=== PATIENT | male | born 1945 | race Hispanic/Latino ===

== ENCOUNTER 2017-02-03 04:39 | Inpatient (IN) | payer MEDICARE ==
[~2017-02-03] VITALS: Ht 172.7 cm; Wt 95.4 kg
[~2017-02-03 04:39] MED LIST: CIPRO XR500 MG PO; CITRATE OF MEGNESIA PO; FLAGYL500 MG PO; GOLYTEL1; LASIX 20 MG TAB20 MG PO; LIPITOR20 MG PO; LISINOPRIL5 MG PO; LORTAB 5 PO; LORTAB5 PO; METO25TAB PO; MILK OF MAG30 ML/UDC PO; NO HOME MEDS; NO MEDICATIONS; PCE500 MG PO; PLAVIX75 MG PO; PRAVASTATIN10 MG PO; PRILOSEC40 MG PO; ROBITUSSIN COUGH/COL OR
[2017-02-03] MEDS ORDERED: ASPIRIN81 MG PO (05:04)
[2017-02-03 05:47] LABS: HEMATOCRIT 41.6 % (39.0-50.0); HEMOGLOBIN 14.4 g/dl (14.0-18.0); IMMATURE GRANULOCYTES 0.9 % (0.0-1.0); MEAN CELL VOLUME 93.5 fL CALC (80.0-100.0); MEAN CORPUSCULAR HGB 32.4 pG CALC (26.0-32.0); MEAN CORPUSCULAR HGB CONC 34.6 g/L CALC (32.0-36.0); NEUT# 2.58 thou/uL (1.82-7.42); RED BLOOD COUNT 4.45 mill/uL (4.70-6.10)
[2017-02-03 06:02] LABS: ALBUMIN 3.9 g/dL (3.2-5.0); ALKALINE PHOSPHATASE 88 u/l (38-126); ANION GAP 14 (6-22 (CALC)); BILIRUBIN, TOTAL 0.4 mg/dL (0.0-1.4); BUN 24 mg/dL (8-23); BUN/CREATININE RATIO 29 (12-20 (CALC)); CALCIUM 9.1 mg/dL (8.4-10.2); CARBON DIOXIDE 24 mmol/l (22-30); CHLORIDE 107 mmol/l (95-108); CREATININE 0.8 mg/dL (0.7-1.3); GFR > 60 ML/MIN (>=60 (CALC)); GFR FOR AFR.AMER. > 60 ML/MIN (>=60 (CALC)); GLUCOSE 133 mg/dL (82-115); POTASSIUM 3.7 mmol/l (3.5-5.1); SGOT/AST 22 u/l (19-48); SGPT/ALT 28 u/l (11-66); SODIUM 141 mmol/l (137-146); TOTAL PROTEIN 7.2 g/dL (6.3-8.2)
[2017-02-03 06:14] LABS: MYOGLOBIN 37 ng/mL (0 - 121)
[2017-02-03 08:29] VITALS: BP 161/76
[2017-02-03 12:20] VITALS: BP 157/82
[2017-02-03 13:00] VITALS: BP 157/82
== END 2017-02-03 13:30 | disposition short-term general hospital (02) | DRG 282 ==
LOC: ED 04:39 → ED-I 05:30 → ED 05:30 → ED-I 06:50 → ED 07:07 → MS2 07:08
PROVIDERS: Emergency Medicine; ADMIT Internal Medicine; ATTEND Internal Medicine
DX: I21.4 Non-ST elevation (NSTEMI) myocardial infarction (principal); I10 Essential (primary) hypertension; I25.10 Atherosclerotic heart disease of native coronary artery without angina pectoris; Z95.5 Presence of coronary angioplasty implant and graft; Z85.038 Personal history of other malignant neoplasm of large intestine; Z79.82 Long term (current) use of aspirin; Z87.891 Personal history of nicotine dependence
CPT/HCPCS: J1650

== ENCOUNTER 2017-09-22 19:16 | Emergency (ER) | payer MEDICARE ==
[~2017-09-22] VITALS: Ht 172.7 cm; Wt 98.2 kg
[~2017-09-22 19:16] MED LIST changes: +ASPIRIN81 MG PO
[2017-09-22 20:40] LABS: HEMOGLOBIN 16.6 g/dl (14.0-18.0); IMMATURE GRANULOCYTES 0.4 % (0.0-1.0); MEAN CELL VOLUME 97.8 fL CALC (80.0-100.0); MEAN CORPUSCULAR HGB 33.8 pG CALC (26.0-32.0); MEAN CORPUSCULAR HGB CONC 34.6 g/L CALC (32.0-36.0); NEUT# 3.72 thou/uL (1.82-7.42); RED BLOOD COUNT 4.91 mill/uL (4.70-6.10); RED CELL DISTRI WIDTH 13.9 % (11.5-15.5)
[2017-09-22 20:42] LABS: URINE BILIRUBIN - DIPSTICK NEGATIVE (NEGATIVE); URINE BLOOD DIPSTICK NEGATIVE (NEGATIVE); URINE CLARITY CLEAR; URINE COLOR YELLOW; URINE GLUCOSE - DIPSTICK NEGATIVE (NEGATIVE); URINE KETONE NEGATIVE (NEGATIVE); URINE LEUK ESTERASE NEGATIVE (NEGATIVE); URINE NITRITE - DIPSTICK NEGATIVE (Negative); URINE PROTEIN - DIPSTICK NEGATIVE (NEG-TRACE); URINE SPECIFIC GRAVITY >=1.030; URINE UROBILINOGEN - DIPSTICK 0.2 E.U./dL (0.2)
[2017-09-22 20:49] LABS: ALBUMIN 4.4 g/dL (3.2-5.0); ALKALINE PHOSPHATASE 60 u/l (38-126); ANION GAP 17 (6-22 (CALC)); BILIRUBIN, TOTAL 0.7 mg/dL (0.0-1.4); BUN 15 mg/dL (8-23); BUN/CREATININE RATIO 17 (12-20 (CALC)); CALCIUM 9.7 mg/dL (8.4-10.2); CARBON DIOXIDE 20 mmol/l (22-30); CHLORIDE 110 mmol/l (95-108); CREATININE 0.9 mg/dL (0.7-1.3); GFR > 60 ML/MIN (>=60 (CALC)); GFR FOR AFR.AMER. > 60 ML/MIN (>=60 (CALC)); GLUCOSE 88 mg/dL (82-115); POTASSIUM 4.5 mmol/l (3.5-5.1); SGOT/AST 25 u/l (19-48); SGPT/ALT 31 u/l (11-66); SODIUM 143 mmol/l (137-146); TOTAL PROTEIN 7.2 g/dL (6.3-8.2)
[2017-09-22 21:01] LABS: MYOGLOBIN 44 ng/mL (0 - 121)
[2017-09-22] MEDS ORDERED: AUGMENTIN875TAB PO (23:10)
[2017-09-22] MEDS ORDERED: ANTIVERT PO (23:10)
[2017-09-22 23:20] VITALS: BP 141/73
== END 2017-09-22 23:20 | disposition home or self-care (01) ==
LOC: ED 19:16
PROVIDERS: Emergency Medicine
DX: R42 Dizziness and giddiness (principal); R10.9 Unspecified abdominal pain; R11.0 Nausea; I71.4 Abdominal aortic aneurysm, without rupture; H66.93 Otitis media, unspecified, bilateral; E78.5 Hyperlipidemia, unspecified; I25.10 Atherosclerotic heart disease of native coronary artery without angina pectoris; Z85.038 Personal history of other malignant neoplasm of large intestine; Z95.820 Peripheral vascular angioplasty status with implants and grafts
CPT/HCPCS: S0164

== ENCOUNTER 2018-05-22 15:53 | Emergency (ER) | payer MEDICARE ==
[~2018-05-22] VITALS: Ht 172.7 cm; Wt 100.0 kg
[~2018-05-22 15:53] MED LIST changes: +ANTIVERT PO; +AUGMENTIN875TAB PO
[2018-05-22] MEDS ORDERED: LEVAQUIN750 M1 PO (16:09)
[2018-05-22] MEDS ORDERED: FLOXIN OTIC0.3 % AD (16:09)
[2018-05-22 16:12] VITALS: BP 155/89
== END 2018-05-22 16:17 | disposition home or self-care (01) ==
LOC: ED 15:53
DX: H60.91 Unspecified otitis externa, right ear (principal)

== ENCOUNTER 2019-04-04 21:45 | Emergency (ER) | payer MEDICARE ==
[~2019-04-04] VITALS: Ht 172.7 cm; Wt 100.0 kg
[~2019-04-04 21:45] MED LIST changes: +FLOXIN OTIC0.3 % AD; +LEVAQUIN750 M1 PO
[2019-04-04 22:28] LABS: HEMATOCRIT 45.8 % (39.0-50.0); HEMOGLOBIN 15.3 g/dl (14.0-18.0); IMMATURE GRANULOCYTES 0.6 % (0.0-5.0); MEAN CELL VOLUME 96.2 fL CALC (80.0-100.0); MEAN CORPUSCULAR HGB 32.1 pG CALC (26.0-32.0); MEAN CORPUSCULAR HGB CONC 33.4 g/L CALC (32.0-36.0); NEUT# 3.71 thou/uL (1.82-7.42); RED BLOOD COUNT 4.76 mill/uL (4.70-6.10); RED CELL DISTRI WIDTH 14.1 % (11.5-15.5)
[2019-04-04 22:46] LABS: ALBUMIN 4.2 g/dL (3.2-5.0); ALKALINE PHOSPHATASE 60 u/l (38-126); ANION GAP 15 (6-22 (CALC)); BUN 19 mg/dL (8-23); BUN/CREATININE RATIO 19 (12-20 (CALC)); CARBON DIOXIDE 20 mmol/l (22-30); CHLORIDE 109 mmol/l (95-108); GFR > 60 ML/MIN (>=60 (CALC)); GFR FOR AFR.AMER. > 60 ML/MIN (>=60 (CALC)); SGOT/AST 16 u/l (19-48); SODIUM 140 mmol/l (137-146); TOTAL PROTEIN 6.8 g/dL (6.3-8.2)
[2019-04-04 22:48] LABS: BILIRUBIN, TOTAL 0.4 mg/dL (0.0-1.4); PROTHROMBIN TIME 10.5 SECONDS (9.0-12.5)
[2019-04-05] MEDS ORDERED: LEVAQUIN750 MG PO (03:42)
[2019-04-05 04:10] VITALS: BP 139/79
== END 2019-04-05 04:10 | disposition home or self-care (01) ==
LOC: ED 21:45
PROVIDERS: Emergency Medicine
DX: R22.31 Localized swelling, mass and lump, right upper limb (principal); M79.601 Pain in right arm; R91.8 Other nonspecific abnormal finding of lung field
CPT/HCPCS: Q9967

== ENCOUNTER 2019-08-27 20:58 | Emergency (ER) | payer MEDICARE ==
[~2019-08-27] VITALS: Ht 172.7 cm; Wt 100.0 kg
[~2019-08-27 20:58] MED LIST changes: +LEVAQUIN750 MG PO
[2019-08-27 22:15] LABS: HEMATOCRIT 45.2 % (39.0-50.0); HEMOGLOBIN 15.2 g/dl (14.0-18.0); IMMATURE GRANULOCYTES 0.7 % (0.0-5.0); MEAN CELL VOLUME 96.2 fL CALC (80.0-100.0); MEAN CORPUSCULAR HGB 32.3 pG CALC (26.0-32.0); MEAN CORPUSCULAR HGB CONC 33.6 g/L CALC (32.0-36.0); NEUT# 4.2 thou/uL (1.82-7.42); RED BLOOD COUNT 4.7 mill/uL (4.70-6.10); RED CELL DISTRI WIDTH 13.5 % (11.5-15.5)
[2019-08-27 22:28] LABS: ALBUMIN 4.5 g/dL (3.2-5.0); ALKALINE PHOSPHATASE 73 u/l (38-126); ANION GAP 13 (6-22 (CALC)); BILIRUBIN, TOTAL 0.3 mg/dL (0.0-1.4); BUN 22 mg/dL (8-23); BUN/CREATININE RATIO 19 (12-20 (CALC)); CHLORIDE 105 mmol/l (95-108); CREATININE 1.1 mg/dL (0.7-1.3); GFR > 60 ML/MIN (>=60 (CALC)); GFR FOR AFR.AMER. > 60 ML/MIN (>=60 (CALC)); POTASSIUM 4.3 mmol/l (3.5-5.1); SGOT/AST 24 u/l (19-48); SODIUM 140 mmol/l (137-146); TOTAL PROTEIN 7.7 g/dL (6.3-8.2)
[2019-08-27 22:31] LABS: PROTHROMBIN TIME 10.2 SECONDS (9.0-12.5)
[2019-08-27 22:33] LABS: CARBON DIOXIDE 26 mmol/l (22-30)
[2019-08-27 22:36] LABS: MYOGLOBIN 44 ng/mL (0 - 121)
[2019-08-27 23:13] LABS: URINE BILIRUBIN - DIPSTICK NEGATIVE (NEGATIVE); URINE BLOOD DIPSTICK NEGATIVE (NEGATIVE); URINE COLOR YELLOW; URINE GLUCOSE - DIPSTICK NEGATIVE (NEGATIVE); URINE KETONE NEGATIVE (NEGATIVE); URINE LEUK ESTERASE NEGATIVE (NEGATIVE); URINE NITRITE - DIPSTICK NEGATIVE (Negative); URINE PROTEIN - DIPSTICK NEGATIVE (NEG-TRACE); URINE UROBILINOGEN - DIPSTICK 0.2 E.U./dL (0.2)
[2019-08-28] MEDS ORDERED: ROBITUSSIN AC10 ML PO (00:05)
[2019-08-28] MEDS ORDERED: ZPAK PO (00:05)
[2019-08-28 00:30] VITALS: BP 141/72
== END 2019-08-28 00:27 | disposition home or self-care (01) ==
LOC: ED 20:58
PROVIDERS: Emergency Medicine
DX: R04.2 Hemoptysis (principal); J06.9 Acute upper respiratory infection, unspecified; Z87.891 Personal history of nicotine dependence
CPT/HCPCS: Q9967

== ENCOUNTER 2021-08-12 07:27 | Emergency (ER) | payer MEDICARE ==
[~2021-08-12] VITALS: Ht 172.7 cm; Wt 100.0 kg
[~2021-08-12 07:27] MED LIST changes: +ROBITUSSIN AC10 ML PO; +ZPAK PO
[2021-08-12 08:05] LABS: HEMATOCRIT 44.5 % (39.0-50.0); HEMOGLOBIN 15.1 g/dl (14.0-18.0); IMMATURE GRANULOCYTES 0.5 % (0.0-5.0); MEAN CELL VOLUME 97.8 fL CALC (80.0-100.0); MEAN CORPUSCULAR HGB 33.2 pG CALC (26.0-32.0); MEAN CORPUSCULAR HGB CONC 33.9 g/dL CAL (32.0-36.0); NEUT# 3.07 thou/uL (1.82-7.42); RED BLOOD COUNT 4.55 mill/uL (4.70-6.10); RED CELL DISTRI WIDTH 12.4 % (11.5-15.5)
[2021-08-12 08:21] LABS: ALKALINE PHOSPHATASE 73 u/l (38-126); ANION GAP 10 (6-22 (CALC)); BUN 25 mg/dL (8-23); BUN/CREATININE RATIO 25 (12-20 (CALC)); CARBON DIOXIDE 24 mmol/l (22-30); CHLORIDE 108 mmol/l (95-108); GFR > 60 ML/MIN (>=60 (CALC)); GFR FOR AFR.AMER. > 60 ML/MIN (>=60 (CALC)); SGOT/AST 21 u/l (19-48); SODIUM 138 mmol/l (137-146); TOTAL PROTEIN 7.1 g/dL (6.3-8.2)
[2021-08-12 08:30] LABS: BILIRUBIN, TOTAL 0.5 mg/dL (0.0-1.4)
[2021-08-12] MEDS ORDERED: MECLIZINE25 MG PO (10:02)
[2021-08-12 10:33] VITALS: BP 143/75
== END 2021-08-12 10:55 | disposition home or self-care (01) ==
LOC: ED 07:27
PROVIDERS: Family Medicine
DX: R42 Dizziness and giddiness (principal); I10 Essential (primary) hypertension; Z85.038 Personal history of other malignant neoplasm of large intestine
CPT/HCPCS: Q9967

== ENCOUNTER 2022-04-14 15:41 | Emergency (ER) | payer OTHER, MEDICARE ==
[2022-04-14] VITALS (8 sets, daily range): BP systolic 120–142; BP diastolic 66–76
[~2022-04-14] VITALS: Ht 172.7 cm; Wt 97.0 kg
[~2022-04-14 15:41] MED LIST changes: +MECLIZINE25 MG PO
[2022-04-14 16:15] LABS: HEMATOCRIT 43.7 % (39.0-50.0); HEMOGLOBIN 14.7 g/dl (14.0-18.0); IMMATURE GRANULOCYTES 0.3 % (0.0-5.0); MEAN CELL VOLUME 97.3 fL CALC (80.0-100.0); MEAN CORPUSCULAR HGB 32.7 pG CALC (26.0-32.0); MEAN CORPUSCULAR HGB CONC 33.6 g/dL CAL (32.0-36.0); NEUT# 5.3 thou/uL (1.82-7.42); RED BLOOD COUNT 4.49 mill/uL (4.70-6.10); RED CELL DISTRI WIDTH 11.9 % (11.5-15.5)
[2022-04-14 16:39] LABS: ALKALINE PHOSPHATASE 57 u/l (38-126); ANION GAP 13 (6-22 (CALC)); BILIRUBIN, TOTAL 0.5 mg/dL (0.0-1.4); BUN 17 mg/dL (8-23); BUN/CREATININE RATIO 19 (12-20 (CALC)); CARBON DIOXIDE 22 mmol/l (22-30); CHLORIDE 111 mmol/l (95-108); CREATININE 0.9 mg/dL (0.7-1.3); GFR > 60 ML/MIN (>=60 (CALC)); GFR FOR AFR.AMER. > 60 ML/MIN (>=60 (CALC)); LIPASE 275 u/l (23-300); SGOT/AST 19 u/l (19-48); SODIUM 142 mmol/l (137-146); TOTAL PROTEIN 7.2 g/dL (6.3-8.2)
== END 2022-04-14 17:50 | disposition home or self-care (01) | DRG 313 ==
LOC: ED 15:41
PROVIDERS: Family Medicine
DX: R07.89 Other chest pain (principal); M54.2 Cervicalgia; V49.40XA Driver injured in collision with unspecified motor vehicles in traffic accident, initial encounter; Z85.038 Personal history of other malignant neoplasm of large intestine
CPT/HCPCS: Q9967

== ENCOUNTER 2023-01-09 14:20 | Inpatient (IN) | payer MEDICARE ==
[~2023-01-09] VITALS: Ht 172.7 cm; Wt 98.8 kg
[2023-01-09] VITALS (14 sets, daily range): BP systolic 120–155; BP diastolic 64–85
--- NOTE | 2023-01-09 16:17 | NUR ---
PT AMBULATED BACK TO RM 13 FOR EVALUATION, AT BEDSIDE, HOOKED UP TO VITALS MONITOR.
[2023-01-09 17:20] LABS: BASO% 0.3 % (0-3); EOS% 0.7 % (0-8); HEMATOCRIT 44.9 % (39.0-50.0); HEMOGLOBIN 14.8 g/dl (14.0-18.0); IMMATURE GRANULOCYTES 0.3 % (0.0-5.0); MONO% 7.6 % (2-13); NEUT# 6.42 thou/uL (1.82-7.42); NEUT% 73.1 % (42-76); RED BLOOD COUNT 4.63 mill/uL (4.70-6.10); RED CELL DISTRI WIDTH 13.4 % (11.5-15.5)
--- NOTE | 2023-01-09 17:21 | NUR ---
Reassessment of patient completed. No distress noted.
[2023-01-09 17:34] LABS: ALBUMIN 4.4 g/dL (3.2-5.0); ALKALINE PHOSPHATASE 65 u/l (38-126); ANION GAP 13 (6-22 (CALC)); BUN 16 mg/dL (8-23); BUN/CREATININE RATIO 17 (12-20 (CALC)); CARBON DIOXIDE 23 mmol/l (22-30); CHLORIDE 106 mmol/l (95-108); CREATININE 0.9 mg/dL (0.7-1.3); GFR FOR AFR.AMER. > 60 ML/MIN (>=60 (CALC)); GFR OTHER RACES > 60 ML/MIN (>=60 (CALC)); POTASSIUM 3.7 mmol/l (3.5-5.1); SGOT/AST 27 u/l (19-48); SODIUM 138 mmol/l (137-146); TOTAL PROTEIN 7.9 g/dL (6.3-8.2)
--- NOTE | 2023-01-09 20:13 | NUR ---
PT IN ROOM RESTING. PT ASKED FOR A URINAL AND IT WAS PROVIDED. NAD
[2023-01-09 20:28] LABS: ACT PARTIAL THROMBO TIME 27.8 SECONDS (20.0-32.5); INTERNATIONAL NORMALIZED RATIO 1.1 RATIO (0.7-1.3); PROTHROMBIN TIME 10.9 SECONDS (9.0-12.5)
--- NOTE | 2023-01-09 21:22 | NUR ---
PT IN ROOM, ASKED WHEN WILL HE GO UP TO A ROOM. AZITHROMYCIN STARTED. NAD, VSS
--- NOTE | 2023-01-09 22:15 | NUR ---
Reassessment of patient completed. No distress noted.
--- NOTE | 2023-01-09 23:34 | NUR ---
REPORT CALLED IN TO RAFAEL ARANGO. ON MED SURG. PT GOING TO ROOM 262
--- NOTE | 2023-01-09 23:45 | NUR ---
PT ARRIVED TO [facility] @[id number] VIA WHEELCHAIR, ACCOMPANIED BY KARY. RECEIVED REPORT FROM ER NURSE. PT ORIENBTED TO ROOM AND USE OF CALL LIGHT. VS AND ASSESS,MENT COMPLETED. PT A&O X3. SOB ON EXERTION. O2 @ 2L VIA NASAL CANNULA IN PLACE. IV SITE HEALTHY AND PATENT. ACTIVE BOWEL SOUNDS X4 QUADRANTS. SKIN IS INTACT. SAFETY PRECAUTIONS IN PLACE WITH CALL LIGHT IN REACH.
[2023-01-10 03:46] VITALS: BP 124/62
--- NOTE | 2023-01-10 03:48 | NUR ---
PT RESTING ON BED WITH EYES CLOSED. NO DISTRESS OR PAIN NOTED. VS COMPLETED. NO VOICED NEEDS AT THIS TIME. SAFETY PRECAUTIONS IN PLACE WITH CALL LIGHT IN REACH.
[2023-01-10 04:41] LABS: BASO% 0.4 % (0-3); HEMATOCRIT 40.3 % (39.0-50.0); HEMOGLOBIN 13.3 g/dl (14.0-18.0); IMMATURE GRANULOCYTES 0.7 % (0.0-5.0); LYMPH% 24.6 % (15-41); MEAN CELL VOLUME 96.2 fL CALC (80.0-100.0); MEAN CORPUSCULAR HGB 31.7 pG CALC (26.0-32.0); MONO% 10.1 % (2-13); NEUT# 5.07 thou/uL (1.82-7.42); NEUT% 63.2 % (42-76); RED BLOOD COUNT 4.19 mill/uL (4.70-6.10); RED CELL DISTRI WIDTH 13.2 % (11.5-15.5)
[2023-01-10 04:55] LABS: ALBUMIN 3.9 g/dL (3.2-5.0); ALKALINE PHOSPHATASE 63 u/l (38-126); ANION GAP 11 (6-22 (CALC)); BUN 14 mg/dL (8-23); BUN/CREATININE RATIO 16 (12-20 (CALC)); CARBON DIOXIDE 26 mmol/l (22-30); CHLORIDE 105 mmol/l (95-108); CREATININE 0.9 mg/dL (0.7-1.3); GFR FOR AFR.AMER. > 60 ML/MIN (>=60 (CALC)); GFR OTHER RACES > 60 ML/MIN (>=60 (CALC)); POTASSIUM 3.5 mmol/l (3.5-5.1); SGOT/AST 31 u/l (19-48); SODIUM 138 mmol/l (137-146); TOTAL PROTEIN 6.9 g/dL (6.3-8.2)
[2023-01-10 06:30] VITALS: BP 106/58
--- NOTE | 2023-01-10 07:26 | NUR ---
PT RESTING IN LOW FOWLERS POSITION. PT A/OX3 ASSESSMENT AND VS COMPLETED. HEART RHYTHM NORM RESPIRATIONS ON 2LNC PT NON DEPENDENT AT HOME. LUNG SOUNDS DIMINISHED. IV SITE NOTED INFUSING WITH NS. PT DENIES ADDITIONAL NEEDS AT THE TIME ALL SAFETY PRECAUTIONS IN PLACE.
[2023-01-10 11:06] VITALS: BP 114/56
[2023-01-10 11:07] VITALS: BP 114/56
--- NOTE | 2023-01-10 12:02 | NUR ---
PT NOW ON TELE.
[2023-01-10 14:03] VITALS: BP 122/59
--- NOTE | 2023-01-10 16:45 | NUR ---
PT STATED REQUEST FOR FRESH ICED WATER. ICED WATER PROVIDED. PT DENIES ADDITIONAL NEEDS.
[2023-01-10 18:44] VITALS: BP 133/67
--- NOTE | 2023-01-10 20:48 | NUR ---
RECEIVED REPORT FROM CHAD HERNANDEZ. PT SITTING ON BED LOW FOWLERS; A&O X3. TELEMETRY IN PLACE. EVEN AND UNLABORED RESPIRATIONS; DIMINISHED LUNG SOUNDS. IV SUTE HEALTHY AND PATENT. ACTIVE BOWEL SOUNDS X4 QUADRANTS. SAFETY PRECAUTIONS IN PLACE WITH CALL LIGHT IN REACH.
[2023-01-11 00:08] VITALS: BP 135/72
--- NOTE | 2023-01-11 00:16 | NUR ---
PT RESTING ON BED WITH EYES CLOSED. VS COMPLETED. NO DISTRESS OR PAIN NOTED. NO VOICED NEEDS AT THIS TIME. SAFETY PRECAUTIONS IN PLACE WITH CALL LIGHT IN REACH.
--- NOTE | 2023-01-11 03:46 | NUR ---
PT RESTING ON BED WITH EYES CLOSED, SUPINE POSITION. O2 @ 2L VIA NASAL CANNULA IN PLACE. IV SITE HEALTHY AND PATENT INFUSING FLUIDS PER ORDER. NO DISTRESS OR PAIN NOTED. SAFETY PRECAUTIONS IN PLACE WITH CALL LIGHT IN REACH.
[2023-01-11 04:28] VITALS: BP 119/63
[2023-01-11 05:28] LABS: ALBUMIN 3.4 g/dL (3.2-5.0); ALKALINE PHOSPHATASE 53 u/l (38-126); BASO% 0.3 % (0-3); BILIRUBIN, TOTAL 0.8 mg/dL (0.2-1.3); BUN 19 mg/dL (8-23); BUN/CREATININE RATIO 22 (12-20 (CALC)); CHLORIDE 110 mmol/l (95-108); CREATININE 0.9 mg/dL (0.7-1.3); EOS% 1.9 % (0-8); GFR FOR AFR.AMER. > 60 ML/MIN (>=60 (CALC)); GFR OTHER RACES > 60 ML/MIN (>=60 (CALC)); HEMATOCRIT 41.7 % (39.0-50.0); HEMOGLOBIN 13.1 g/dl (14.0-18.0); IMMATURE GRANULOCYTES 0.3 % (0.0-5.0); LYMPH% 23.5 % (15-41); MAGNESIUM 1.9 mg/dL (1.6-2.3); MEAN CELL VOLUME 101.5 fL CALC (80.0-100.0); MEAN CORPUSCULAR HGB 31.9 pG CALC (26.0-32.0); MEAN CORPUSCULAR HGB CONC 31.4 g/dL CAL (32.0-36.0); MONO% 10.3 % (2-13); NEUT# 4.04 thou/uL (1.82-7.42); NEUT% 63.7 % (42-76); POTASSIUM 4.2 mmol/l (3.5-5.1); RED BLOOD COUNT 4.11 mill/uL (4.70-6.10); SGOT/AST 35 u/l (19-48); SODIUM 135 mmol/l (137-146); TOTAL PROTEIN 6.3 g/dL (6.3-8.2)
[2023-01-11 05:35] LABS: ANION GAP 9 (6-22 (CALC)); CARBON DIOXIDE 20 mmol/l (22-30)
[2023-01-11 06:39] VITALS: BP 127/62
--- NOTE | 2023-01-11 07:09 | NUR ---
PT RESTING IN LOW FOWLERS POSITION. A/OX3 ASSESSMENT AND VS COMPLETED. HEART RHYTHM ON TELE. RESPIRATIONS ON 2L OF OXYGEN TO BE TITRATED TO 1.5 PT USES I.S. PT IV SITE NOTED INFUSING WITH NS @50. PT STATES FEELING BETTER ALL SAFETY PRECAUTIONS IN PLACE WITH CALL LIGHT INREACH.
[2023-01-11 09:57] VITALS: BP 125/59
[2023-01-11] MEDS ORDERED: LEVAQUIN750 M1 PO (11:34)
--- NOTE | 2023-01-11 11:59 | NUR ---
PT TO BE DC TODAY.NO LONGER ON OXYGEN .
[2023-01-11 14:15] VITALS: BP 122/68
--- NOTE | 2023-01-11 14:50 | NUR ---
Discharge instructions given. Patient verbalizes understanding of same. Discharged in stable condition via Wheelchair to Home with staff. All belongings sent with pt. IV REMOVED TELE REMOVED.
--- NOTE | 2023-01-15 10:45 | NUR ---
Pneumonia post discharge follow up call completed today, 01.15.23, Pt states he is doing well. No fever, chills, or SOB. Pt is taking prescribed medication without issue. Follow up apointment is scheduled for tomorrow, 01/16/23. No questions or concerns voiced by patient at this time.
== END 2023-01-11 14:40 | disposition home or self-care (01) | DRG 194 ==
LOC: ED 14:20 → MS2 21:29
PROVIDERS: Family Medicine; Nurse Practitioner Family; ADMIT Internal Medicine; ATTEND Internal Medicine
DX: J18.9 Pneumonia, unspecified organism (principal); R04.2 Hemoptysis; J43.9 Emphysema, unspecified; R09.02 Hypoxemia; I25.10 Atherosclerotic heart disease of native coronary artery without angina pectoris; Z87.891 Personal history of nicotine dependence; Z85.038 Personal history of other malignant neoplasm of large intestine; Z20.822 Contact with and (suspected) exposure to COVID-19
CPT/HCPCS: Q9967